=== PATIENT | male | born 1940 | race African-American/Black ===

== ENCOUNTER 2018-05-18 15:22 | Emergency (ER) | payer MEDICARE, MEDICAID ==
[~2018-05-18] VITALS: Ht 185.4 cm; Wt 92.3 kg
[~2018-05-18 15:22] MED LIST: AMLO5TAB66 PO; FINA5TAB41 PO; HYDR12.530 PO; TAMS-1 PO
[2018-05-18] MEDS ORDERED: METF-445 PO (15:28)
[2018-05-18] MEDS ORDERED: INSLAN SQ (15:28)
[2018-05-18 15:34] LABS: GLUCOSE,POINT OF CARE 104 MG/DL (70-110)
[2018-05-18] MEDS ORDERED: ACETAMINOPHEN 500 MG TABLET PO ONE (16:15)
[2018-05-18] MEDS ORDERED: CEPHALEXIN MONOHYDRATE 500 MG CAPSULE PO ONE (17:45)
[2018-05-18] MEDS ORDERED: BACITRACIN 0.9 GM PACKET OINTMENT TP ONE (17:45)
[2018-05-18 17:58] VITALS: BP 133/74
== END 2018-05-18 18:12 | disposition home or self-care (01) ==
LOC: EMS 15:22
DX: S91.002A Unspecified open wound, left ankle, initial encounter (principal); I10 Essential (primary) hypertension; E11.9 Type 2 diabetes mellitus without complications; F12.90 Cannabis use, unspecified, uncomplicated; F17.210 Nicotine dependence, cigarettes, uncomplicated; Z79.4 Long term (current) use of insulin; W22.8XXA Striking against or struck by other objects, initial encounter; Y93.89 Activity, other specified; Y92.89 Other specified places as the place of occurrence of the external cause; Y99.8 Other external cause status
CPT/HCPCS: 99406